=== PATIENT | female | born 1985 | race Two or more races ===

== ENCOUNTER 2019-05-09 03:01 | Inpatient (IN) | payer BC, MEDICAID ==
[~2019-05-09] VITALS: Ht 160 cm; Wt 92.3 kg
[2019-05-09 03:44] LABS: AMPHETAMINE SCREEN, URINE Negative (Negative); BARBITURATE SCREEN, URINE Negative (Negative); BENZODIAZEPINE SCREEN, URINE Negative (Negative); CANNABINOID SCREEN, URINE Negative (Negative); COCAINE SCREEN, URINE Negative (Negative); METHADONE SCREEN, URINE Negative (Negative); OPIATE SCREEN, URINE Negative (Negative)
[2019-05-09 03:45] LABS: MICROSCOPIC INDICATED
[2019-05-09 04:11] LABS: BASOPHILS # (AUTO) 0.08 x10^3/uL (0-0.1); BASOPHILS % (AUTO) 1 % (0-1); EOSINOPHILS # (AUTO) 0.07 x10^3/uL (0-0.4); EOSINOPHILS % (AUTO) 1 % (1-7); LYMPHOCYTES # (AUTO) 1.79 x10^3/uL (1-3.4); LYMPHOCYTES % (AUTO) 19 % (22-44); MD NO; MEAN CORPUSCULAR HEMOGLOBIN 28.4 pg (27.0-34.8); MEAN CORPUSCULAR HGB CONC 33.1 g/dL (32.4-35.8); MEAN CORPUSCULAR VOLUME 85.7 fL (80-100); MEAN PLATELET VOLUME 10.9 fL (7.4-10.4); MONOCYTES # (AUTO) 0.56 x10^3/uL (0.2-0.8); MONOCYTES % (AUTO) 6 % (2-9); NEUTROPHILS # (AUTO) 6.76 x10^3/uL (1.8-6.8); NEUTROPHILS % (AUTO) 73 % (42-75); PLATELET COUNT 207 x10^3/uL (130-400); RED BLOOD COUNT 4.22 x10^6/uL (3.82-5.3); RED CELL DISTRIBUTION WIDTH 14.9 % (9.6-15.2)
[2019-05-09 04:58] VITALS: BP 115/59
[2019-05-09] MEDS ORDERED: OXYTOCIN 30U/ 0.9% NaCL 500ML 500 ML IV ONE (05:32)
[2019-05-09] MEDS ORDERED: LACTATED RINGERS 1,000 ML IV SCH ×2 (05:32→06:35)
[2019-05-09] MEDS ORDERED: D5%-LACTATED RINGERS 1,000 ML IV SCH (05:32)
[2019-05-09] MEDS ORDERED: FENTANYL/BUPIV./NS/PF 250 ML EPIDCONT SCH ×2 (05:32→06:35)
[2019-05-09] MEDS ORDERED: FENTANYL PF 100 MCG/2ML ONE (05:36)
[2019-05-09] MEDS ORDERED: OXYTOCIN 30U/ 0.9% NaCL 500ML 500 ML ONE ×2 (05:40→11:48)
[2019-05-09] MEDS ORDERED: NEWBORN KIT ONE (05:40)
[2019-05-09] MEDS ORDERED: CALCIUM CARBONATE 500 MG TAB.CHEW PO PRN (06:00)
[2019-05-09] MEDS ORDERED: METOCLOPRAMIDE 5 MG/ML, 2ML IVPush PRN (06:00)
[2019-05-09] MEDS ORDERED: TERBUTALINE 1 MG/ML, 1ML IVPush PRN (06:00)
[2019-05-09] MEDS ORDERED: SODIUM CITRATE/CITRIC ACID 30 ML UDC PO PRN (06:00)
[2019-05-09] MEDS ORDERED: ONDANSETRON 2MG/ML, 2ML IVPush PRN (06:00)
[2019-05-09] MEDS ORDERED: FENTANYL PF 100 MCG/2ML IVPush PRN (06:00)
[2019-05-09] MEDS ORDERED: TERBUTALINE 1 MG/ML, 1ML SQ PRN (06:00)
[2019-05-09] MEDS ORDERED: ALUMINUM/MAG/SIMETHICONE 30 ML UDC PO PRN (06:00)
[2019-05-09] MEDS ORDERED: BUPIVACAINE 0.25% ONE (06:16)
[2019-05-09] MEDS ORDERED: LIDOCAINE/PF 1.5% EPI 1:200K, 10 ML ONE (06:20)
[2019-05-09] MEDS ORDERED: BETAMETHASONE 6 MG/ML, 5ML IM ONE (06:45)
[2019-05-09] MEDS ORDERED: EPHEDRINE 50 MG/ML, 1ML IVPush PRN (07:00)
[2019-05-09] MEDS ORDERED: LACTATED RINGERS 1,000 ML IVBOLUS PRN (07:00)
[2019-05-09] MEDS ORDERED: IBUPROFEN 600 MG TABLET ONE (11:48)
[2019-05-09] MEDS: IBUPROFEN 600 MG TABLET PO PRN ×3 (11:51→23:54)
[2019-05-09] MEDS ORDERED: DOCUSATE 100 MG CAPSULE PO PRN (12:00)
[2019-05-09] MEDS ORDERED: METOCLOPRAMIDE 5 MG/ML, 2ML IV PRN (12:00)
[2019-05-09] MEDS ORDERED: ACETAMINOPHEN 325 MG TABLET PO PRN (12:00)
[2019-05-09] MEDS ORDERED: OXYcodone/APAP 5/325MG TABLET PO PRN ×2 (12:00)
[2019-05-09] MEDS ORDERED: SIMETHICONE 80 MG CHEW TAB PO PRN (12:00)
[2019-05-09] MEDS ORDERED: ONDANSETRON 2MG/ML, 2ML IV PRN (12:00)
[2019-05-09] MEDS ORDERED: IBUPROFEN 800 MG TABLET PO PRN (12:00)
[2019-05-09] MEDS: OXYTOCIN 30U/ 0.9% NaCL 500ML 500 ML IV SCH ×2 (13:12→21:44)
[2019-05-09 13:33] VITALS: BP 128/80
[2019-05-09 19:37] LABS: MEAN CORPUSCULAR HEMOGLOBIN 28.9 pg (27.0-34.8); MEAN CORPUSCULAR HGB CONC 33.6 g/dL (32.4-35.8); MEAN CORPUSCULAR VOLUME 85.8 fL (80-100); MEAN PLATELET VOLUME 10.7 fL (7.4-10.4); PLATELET COUNT 198 x10^3/uL (130-400); RED BLOOD COUNT 4.07 x10^6/uL (3.82-5.3); RED CELL DISTRIBUTION WIDTH 15.1 % (9.6-15.2)
[2019-05-09 19:41] VITALS: BP 123/76
[2019-05-09 19:59] LABS: MD YES
[2019-05-09 20:01] LABS: <PLATELET ESTIMATE> ADEQUATE; <PLT MORPHOLOGY> NORMAL PLT MORPH; <RBC MORPHOLOGY> NORMAL; BAND#(MANUAL) 1.96 x10^3/uL; BANDS%(MANUAL) 8 % (0-7); EOS#(MANUAL) 0.25 x10^3/uL (0.0-0.4); EOS% (MANUAL) 1 % (1-7); LYMPH#(MANUAL) 0.49 x10^3/uL (1-3.4); LYMPHS% (MANUAL) 2 % (22-44); MONOS#(MANUAL) 1.47 x10^3/uL (0.3-2.7); MONOS% (MANUAL) 6 % (2-9); SEG#(MANUAL) 20.34 x10^3/uL (1.8-6.8); SEGS% (MANUAL) 83 % (42-75)
[2019-05-10 00:38] VITALS: BP 123/80
[2019-05-10] MEDS: ACETAMINOPHEN 325 MG TABLET PO PRN ×2 (00:56→11:35)
[2019-05-10 05:16] VITALS: BP 136/85
[2019-05-10] MEDS: IBUPROFEN 600 MG TABLET PO PRN ×2 (05:53→20:29)
[2019-05-10] MEDS: OXYTOCIN 30U/ 0.9% NaCL 500ML 500 ML IV SCH (07:44)
[2019-05-10 08:10] VITALS: BP 128/83
[2019-05-10] MEDS ORDERED: PRENATAL VIT/IRON/FA 1 EACH TABLET PO SCH (09:00)
[2019-05-10] MEDS ORDERED: BICILLIN-LA 2,400,000 UNITS/4 ML IM ONE (18:30)
[2019-05-10] MEDS ORDERED: IBUP-1222 PO (19:54)
[2019-05-10 20:00] VITALS: BP 138/92
[2019-05-10] MEDS ORDERED: MEASLES,MUMPS&RUBELLA VACC/PF 0.5 ML SQ-VACC ONE ×2 (20:09→20:15)
[2019-05-10] MEDS ORDERED: DIPH,PERTUSS(ACELL),TET VAC/PF NC IM-VACC ONE ×2 (20:09→20:30)
== END 2019-05-10 22:23 | disposition home or self-care (01) | DRG 807 ==
LOC: LDOP 03:01 → EDIP 05:32 → LDIP 05:37 → 2NW 13:51
PROVIDERS: ADMIT Student in an Organized Health Care Education/Training Program; ATTEND Student in an Organized Health Care Education/Training Program
PROC: 10E0XZZ Delivery of Products of Conception, External Approach (ICD-10-PCS; principal; 2019-05-09)
PROC: 10907ZC Drainage of Amniotic Fluid, Therapeutic from Products of Conception, Via Natural or Artificial Opening (ICD-10-PCS; 2019-05-09)
PROC: 3E0R3BZ Introduction of Anesthetic Agent into Spinal Canal, Percutaneous Approach (ICD-10-PCS; 2019-05-09)
PROC: 00HU33Z Insertion of Infusion Device into Spinal Canal, Percutaneous Approach (ICD-10-PCS; 2019-05-09)
DX: O80 Encounter for full-term uncomplicated delivery (principal); Z37.0 Single live birth; Z3A.37 37 weeks gestation of pregnancy; Z23 Encounter for immunization
CPT/HCPCS: 36415; 76815; 80307; 81001; 85025; 86592; 86762; 86780; 86850; 86900; 87081; 87086; 87340; 87806; 90715; G0378; J0561; J0702; J3010; J3490; G0475; J2590; J7120

== ENCOUNTER 2020-08-22 22:48 | Emergency (ER) | payer BC ==
[~2020-08-22] VITALS: Ht 154.9 cm; Wt 74.6 kg
[~2020-08-22 22:48] MED LIST: IBUP-1222 PO
[2020-08-23] MEDS ORDERED: ONDANSETRON ODT 4 MG PO ONE (00:30)
[2020-08-23] MEDS ORDERED: ONDANSETRON ODT 4 MG ONE (00:42)
[2020-08-23 01:33] VITALS: BP 122/74
== END 2020-08-23 01:35 | disposition home or self-care (01) ==
LOC: ED 08-23 00:45
DX: R11.2 Nausea with vomiting, unspecified (principal); Z20.822 Contact with and (suspected) exposure to COVID-19; B34.9 Viral infection, unspecified; J02.9 Acute pharyngitis, unspecified; R10.9 Unspecified abdominal pain
CPT/HCPCS: 99283; Q0162; U0003; U0005